=== PATIENT | female | born 1940 | race Caucasian/White ===

== ENCOUNTER 2019-12-31 20:41 | Emergency (ER) | payer MEDICARE, SELFPAY ==
[2019-12-31 21:03] VITALS: BP 191/88; PULSE 80; RESP 17; TEMP 36.9; O2SAT 98
--- NOTE | 2019-12-31 21:07 | DI.CT.S_ITS ---
PROCEDURE: CT CHEST WO CON INDICATIONS: fall TECHNIQUE: Noncontrast 5 mm thick sections acquired from the pulmonary apices to the posterior costophrenic angles. 1 mm lung window, 5 mm thick coronal and sagittal and 7 mm axial MIP reformats were then acquired. For radiation dose reduction, the following was used: automated exposure control, adjustment of mA and/or kV according to patient size. COMPARISON: None. FINDINGS: Image quality: Excellent. Lungs and pleura: Mild upper lobe peripheral reticular thickening and ground-glass opacity bilaterally. Mild peripheral reticular thickening at the lung bases. No pleural effusions or pneumothorax. Central and peripheral airways are patent and normal in caliber. Mediastinum: Left pacemaker. Heart size is prominent. No pericardial effusion. No mediastinal adenopathy by size criteria. Thoracic aorta and central pulmonary arteries are normal in size. Esophagus is normal in caliber. No hiatal hernia. Bones and chest wall: No suspicious bony lesions. T5 and L1 intraosseous hemangioma. Left T4 neural foramen nodule, (2). Please see separately dictated cervical spine CT. No vertebral body compression fractures. No axillary or supraclavicular adenopathy by size criteria. Right breast clip or calcification. Thyroid gland is unremarkable. Abdomen: Visualized upper abdominal solid organs and bowel loops appear normal in the absence of contrast. Question of small gallstone. IMPRESSION: 1. No acute fracture identified. Benign intraosseous hemangioma. 2. Mild peripheral reticular thickening in the lungs. Mild ground-glass opacity in the upper lobes. Favor scarring and atelectasis rather than infectious/inflammatory etiology. 3. Soft tissue nodule in the region of left T4 neural foramen. This may represent a small neoplasm. -this can be further characterized with MRI on a nonemergent basis. 4. Cardiomegaly. Dictated by: Everardo Camp M.D. on 12/31/2019 at 22:31 Approved by: Everardo Capm M.D. on 12/31/2019 at 22:46
--- NOTE | 2019-12-31 21:07 | DI.CT.S_ITS ---
PROCEDURE: CT CERVICAL SPINE WO CON INDICATIONS: fall TECHNIQUE: Noncontrast 3 mm thick sections acquired from the skull base to the T4 level. Sagittal and coronal reformats were then constructed. For radiation dose reduction, the following was used: automated exposure control, adjustment of mA and/or kV according to patient size. COMPARISON: [facility], CT, CT CHEST WO CON, 12/31/2019, 21:31. FINDINGS: Image quality: Excellent. Bones: No fractures or dislocations. C2-C3 and C6-C7 ankylosis. Posterior disc osteophyte complex at C3-C4. C6 interosseous hemangioma. Visualized superior ribs are intact. Bones appear osteopenic. Soft tissues: Prevertebral soft tissues are normal in thickness. No paravertebral hematomas. Left T4 neural foramen 1.6 cm nodule, (7/58). No apical pneumothoraces. Dense carotid bulb atherosclerotic calcifications. Left pacemaker. IMPRESSION: 1. No acute osseous abnormality. 2. Moderate degenerative change of the cervical spine. 3. Left T4 neural foramen nodule. This could represent a small neuroma or other neoplasm. -this could be further characterized with MRI with IV contrast on a nonemergent basis. Dictated by: Everardo Camp M.D. on 12/31/2019 at 21:52 Approved by: Everardo Camp M.D. on 12/31/2019 at 21:59
--- NOTE | 2019-12-31 21:07 | DI.CT.S_ITS ---
PROCEDURE: CT HEAD/BRAIN WO CON INDICATIONS: fall TECHNIQUE: Noncontrast 4.5 mm thick angled axial sections acquired from the foramen magnum to the vertex, with coronal and sagittal reformats. For radiation dose reduction, the following was used: automated exposure control, adjustment of mA and/or kV according to patient size. COMPARISON: [facility], CT, CT CERVICAL SPINE WO CON, 12/31/2019, 21:22. FINDINGS: Image quality: Excellent. CSF spaces: Basal cisterns are patent. No extra-axial fluid collections. Ventricles are normal in size and shape. Brain: No midline shift. Basal ganglia calcifications. No intracranial masses or hemorrhage. No area of hypodensity in a large vascular distribution to suggest acute infarction. Periventricular hypodensity consistent with chronic microvascular ischemic change. Age-related parenchymal loss. Skull and face: Calvarium and visualized facial bones are intact, without suspicious lesions. Sinuses: Visualized sinuses and mastoids are clear. IMPRESSION: No acute intracranial abnormality. Dictated by: Everardo Camp M.D. on 12/31/2019 at 21:50 Approved by: Everardo Camp M.D. on 12/31/2019 at 21:52
[2019-12-31 21:49] VITALS: PULSE 80; RESP 17; O2SAT 98
[2019-12-31 22:00] VITALS: PULSE 80; RESP 18; O2SAT 97
[2019-12-31] MEDS: TET,DIPH,PERTUSS(ACELL),VAC/PF 0.5 ML SYRINGE IM (22:06)
--- NOTE | 2019-12-31 22:27 | DI.RAD.S_ITS ---
PROCEDURE: XR HAND LT 2V INDICATIONS: Fall/injury TECHNIQUE: 2 views of the hand acquired. COMPARISON: None. FINDINGS: Bones: No fractures or dislocations. There is slight widening of the scapholunate interval. Visualized osseous structures appear osteopenic. Carpal bones are normally aligned. No suspicious bony lesions. Soft tissues: There are indistinct soft tissue calcifications along the radiocarpal joint. IMPRESSION: 1. No fracture or dislocation. 2. Widening of the scapholunate interval suggesting ligamentous injury. 3. Indistinct soft tissue calcifications along the radiocarpal joint are nonspecific and may reflect chondrocalcinosis or dystrophic calcifications among other etiologies. Dictated by: Jeremy Montano M.D. on 01/01/2020 at 8:18 Approved by: Jeremy Montano M.D. on 01/01/2020 at 8:26
[2019-12-31 22:30] VITALS: PULSE 80; RESP 20; O2SAT 97
--- NOTE | 2019-12-31 22:43 | ED.FALL ---
HPI - Fall General Chief Complaint: Trauma Stated Complaint: Fall Time Seen by Provider: 12/31/19 21:29 Source: patient and family Mode of arrival: Ambulatory History of Present Illness HPI Narrative: Patient here with granddaughter. They were camping. Patient was pivoting walking, did not see a large rock and tripped over and fell forward. A tent PEG hit her in the sternum. Left eyebrow hit the ground as well as the left tesfaye hit the rock. Tetanus given here. Patient is on blood thinner. Denies denies denies any headache altered mental status confusion neck pain, vision changes. No nausea or vomiting. Has small laceration to the left eyebrow, skin tear to the left tesfaye. And bruising to the left MCP joint Related Data Allergies Allergy/AdvReac Type Severity Reaction Status Date / Time Beta-Blockers Allergy Verified 12/31/19 21:09 (Beta-Adrenergic Bloc Review of Systems Review of Systems Narrative: GENERAL: Denies chills, fatigue, malaise, fever, sweats. HEENT: Denies sinus pain, ear pain, sore throat, difficulty swallowing, dizziness. RESPIRATORY: Denies dyspnea, cough, wheezing, hemoptysis, sputum. CARDIOVASCULAR: Denies chest pain, palpitations, orthopnea, edema, GASTROINTESTINAL: Denies nausea, vomiting, abdominal pain, diarrhea, constipation, melena. : Denies dysuria, frequency, incontinence, hematuria, urinary retention. MUSCULOSKELETAL: denies weakness, complains of joint pain, or bony pain SKIN: Denies rash, skin lesions, or other has abrasions/skin injury to leg and face NEUROLOGIC: Denies weakness, headache, numbness, change in speech, confusion, seizures, incoordination. PSYCHIATRIC: No concerning psychosocial issues. ROS Unobtainable: All systems reviewed & are unremarkable except as noted in HPI and below Patient History Social History Smoking Status: Never smoker Smoking Status: Never smoker alcohol intake frequency: holidays/special occasions only Substance Use Type: does not use Exam Narrative Exam Narrative: GENERAL: patient appears stated age. Well-nourished, well-developed patient, in no distress, not toxic HEAD: Normocephalic. Small superficial 1 cm linear laceration horizontal direction in the left eyebrow. Below the hair. Based visualized bloodless field. No muscle injury seen. No bone exposure. EYES: Pupils equal round and reactive. Extraocular motions intact. No scleral icterus. No injection or drainage. ENT: Nose without bleeding, purulent drainage. Throat without erythema, tonsillar hypertrophy or exudate. Airway patent. NECK: Trachea midline. Non tender cervical collar cleared after CT scan results. There is no no no midline tenderness or step-off. Full active range of motion without any neck pain. No altered mental status CARDIOVASCULAR: Regular rate and rhythm without murmurs, gallops, or rubs. Mild tenderness at the sternum. No crepitus or flail. Skin is intact no bruising RESPIRATORY: Clear to auscultation. Breath sounds equal bilaterally. No wheezes, rales, or rhonchi. GASTROINTESTINAL: Abdomen soft, non-tender, nondistended. EXTREMITIES: Examination bilateral shoulders elbows and wrists nontender. Bilateral pelvis hips and knees and ankles nontender. There is contusion/tenderness small amount of edema to the dorsal surface of the left 5th MCP joint. Able to flex and extend at this joint. No deformity. Light touch intact to hand and fingers and 5th digit. Skin is intact. Examination left lower extremity at the mid tesfaye there are 2 small skin tears. No bone or muscle or tendon injury seen. Bloodless field. BACK: Nontender without deformity or crepitance. No flank tenderness. NEURO: AOx3. Clear speech no facial droop light touch intact to bilateral face hands and legs. Strong equal reservation sales agent. SKIN: No rash or erythema of visible areas PSYCH: Not anxious, is cooperative Initial Vital Signs Initial Vital Signs: Vital Signs Temperature 98.5 F 12/31/19 21:03 Pulse Rate 80 12/31/19 21:03 Respiratory Rate 17 12/31/19 21:03 Blood Pressure 191/88 H 12/31/19 21:03 Pulse Oximetry 98 12/31/19 21:03 Procedures Laceration Repair Left eyebrow: Site: face Side (If applicable): left Size (cm): 1 Description: linear Depth: simple, single layer Amount of anesthesia used (mL): 0 Pre-repair: wound explored and irrigated extensively Skin layer closed with: other (Applied by nurse.) Course Course Course Narrative: Spoke with patient and granddaughter about CT scan findings need further MRI for workup for neoplasm outpatient basis Orders Ordered: ED Orders 12/31/19 21:07 CT cervical spine wo con Stat CT chest wo con Stat CT head/brain wo con Stat 12/31/19 22:27 XR hand LT 2V Stat Discontinued Medications Acetaminophen (Tylenol) 650 mg PO NOW ONE Stop: 12/31/19 22:29 Last Admin: 12/31/19 23:06 Dose: 650 mg Documented by: LETI Diphtheria/Tetanus/Acell Pertussis (Adacel) 0.5 ml IM .ONCE ONE Stop: 12/31/19 21:10 Last Admin: 12/31/19 22:06 Dose: 0.5 ml Documented by: YAHIR Vital Signs Vital signs: Vital Signs - 8 hr 12/31/19 21:03 12/31/19 21:49 12/31/19 22:00 Temperature 98.5 F Pulse Rate 80 80 80 Respiratory Rate 17 17 18 Blood Pressure 191/88 H Pulse Oximetry 98 98 97 12/31/19 22:30 12/31/19 23:00 12/31/19 23:17 Temperature Pulse Rate 80 80 77 Respiratory Rate 20 24 16 Blood Pressure 168/76 H Pulse Oximetry 97 98 MDM - Fall Differential Diagnosis Differential diagnosis: Likely other (Chest contusion/facial laceration/hand contusion/leg skin tear) Imaging Data CT scan - head: Radiologist's Impression: [place] [address] CT Scan Report Signed Patient: Yamile Pan [facility]#: [id number] : 9Acct:[id number] Age/Sex: 79 / FDate of Service: 12/31/19 Loc: ED Accession Number: [id number] Procedure: CT head/brain wo con Ordering Provider: Alexsander Bautista MD PROCEDURE: CT HEAD/BRAIN WO CON INDICATIONS: fall TECHNIQUE: Noncontrast 4.5 mm thick angled axial sections acquired from the foramen magnum to the vertex, with coronal and sagittal reformats. For radiation dose reduction, the following was used: automated exposure control, adjustment of mA and/or kV according to patient size. COMPARISON: [facility], CT, CT CERVICAL SPINE WO CON, 12/31/2019, 21:22. FINDINGS: Image quality: Excellent. CSF spaces: Basal cisterns are patent. No extra-axial fluid collections. Ventricles are normal in size and shape. Brain: No midline shift. Basal ganglia calcifications. No intracranial masses or hemorrhage. No area of hypodensity in a large vascular distribution to suggest acute infarction. Periventricular hypodensity consistent with chronic microvascular ischemic change. Age-related parenchymal loss. Skull and face: Calvarium and visualized facial bones are intact, without suspicious lesions. Sinuses: Visualized sinuses and mastoids are clear. IMPRESSION: No acute intracranial abnormality. Dictated by: Everardo Camp M.D. on 12/31/2019 at 21:50 Approved by: Everardo Camp M.D. on 12/31/2019 at 21:52 CT - cervical spine: Radiologist's Impression: [address] [address] [address] Scan Report Signed Patient: Yamile Pan [facility]#: [id number] : 9Acct:[id number] Age/Sex: 79 / FDate of Service: 12/31/19 Loc: ED Accession Number: [id number] Procedure: CT cervical spine wo con Ordering Provider: Alexsander Bautista MD PROCEDURE: CT CERVICAL SPINE WO CON INDICATIONS: fall TECHNIQUE: Noncontrast 3 mm thick sections acquired from the skull base to the T4 level. Sagittal and coronal reformats were then constructed. For radiation dose reduction, the following was used: automated exposure control, adjustment of mA and/or kV according to patient size. COMPARISON: [facility], CT, CT CHEST WO CON, 12/31/2019, 21:31. FINDINGS: Image quality: Excellent. Bones: No fractures or dislocations. C2-C3 and C6-C7 ankylosis. Posterior disc osteophyte complex at C3-C4. C6 interosseous hemangioma. Visualized superior ribs are intact. Bones appear osteopenic. Soft tissues: Prevertebral soft tissues are normal in thickness. No paravertebral hematomas. Left T4 neural foramen 1.6 cm nodule, (7/58). No apical pneumothoraces. Dense carotid bulb atherosclerotic calcifications. Left pacemaker. IMPRESSION: 1. No acute osseous abnormality. 2. Moderate degenerative change of the cervical spine. 3. Left T4 neural foramen nodule. This could represent a small neuroma or other neoplasm. -this could be further characterized with MRI with IV contrast on a nonemergent basis. Dictated by: Everardo Camp M.D. on 12/31/2019 at 21:52 Approved by: Everardo Camp M.D. on 12/31/2019 at 21:59 CT scan - chest: Radiologist's Impression: [address] [address] [address] Scan Report Signed Patient: Yamile Pan [facility]#: [id number] : 9Acct:[id number] Age/Sex: 79 / FDate of Service: 12/31/19 Loc: ED Accession Number: [id number] Procedure: CT chest wo con Ordering Provider: Alexsander Bautista MD PROCEDURE: CT CHEST WO CON INDICATIONS: fall TECHNIQUE: Noncontrast 5 mm thick sections acquired from the pulmonary apices to the posterior costophrenic angles. 1 mm lung window, 5 mm thick coronal and sagittal and 7 mm axial MIP reformats were then acquired. For radiation dose reduction, the following was used: automated exposure control, adjustment of mA and/or kV according to patient size. COMPARISON: None. FINDINGS: Image quality: Excellent. Lungs and pleura: Mild upper lobe peripheral reticular thickening and ground-glass opacity bilaterally. Mild peripheral reticular thickening at the lung bases. No pleural effusions or pneumothorax. Central and peripheral airways are patent and normal in caliber. Mediastinum: Left pacemaker. Heart size is prominent. No pericardial effusion. No mediastinal adenopathy by size criteria. Thoracic aorta and central pulmonary arteries are normal in size. Esophagus is normal in caliber. No hiatal hernia. Bones and chest wall: No suspicious bony lesions. T5 and L1 intraosseous hemangioma. Left T4 neural foramen nodule, (2/9). Please see separately dictated cervical spine CT. No vertebral body compression fractures. No axillary or supraclavicular adenopathy by size criteria. Right breast clip or calcification. Thyroid gland is unremarkable. Abdomen: Visualized upper abdominal solid organs and bowel loops appear normal in the absence of contrast. Question of small gallstone. IMPRESSION: 1. No acute fracture identified. Benign intraosseous hemangioma. 2. Mild peripheral reticular thickening in the lungs. Mild ground-glass opacity in the upper lobes. Favor scarring and atelectasis rather than infectious/inflammatory etiology. 3. Soft tissue nodule in the region of left T4 neural foramen. This may represent a small neoplasm. -this can be further characterized with MRI on a nonemergent basis. 4. Cardiomegaly. Dictated by: Everardo Camp M.D. on 12/31/2019 at 22:31 Approved by: Everardo Camp M.D. on 12/31/2019 at 22:46 X-ray left hand: My Impression: No acute process MDM Narrative Medical decision making narrative: Incidental findings on CT scan can be followed up with MRI for non emergent basis of neoplasm. I did speak with patient and family no blood work indicates this time. Bleeding controlled. Discharge Plan Departure Patient Disposition: Home Clinical Impression: Eyebrow laceration Qualifiers: Encounter type: initial encounter Laterality: left Qualified Code(s): S01.112A - Laceration without foreign body of left eyelid and periocular area, initial encounter Contusion of sternum Qualifiers: Encounter type: initial encounter Qualified Code(s): S20.219A - Contusion of unspecified front wall of thorax, initial encounter Noninfected skin tear of left leg Qualifiers: Encounter type: initial encounter Qualified Code(s): S81.812A - Laceration without foreign body, left lower leg, initial encounter Discharge Date/Time: 12/31/19 23:17 Instructions: DI for Laceration Repair-Skin Glue, DI for Sternum Contusion, DI for Abrasion Activity Restrictions/Additional Instructions: Keep eyebrow dry for 24 hours then may shower but no submerging underwater. Change dressing in the left leg twice a day with warm soap and water and then topical antibiotic. See family doctor this week for recheck and to schedule MRI of the spine as we discussed tonight. Return if worse or if any questions or concerns. Referrals: Deyvi Villarreal MD [Primary Care Provider] -
[2019-12-31 23:00] VITALS: PULSE 80; RESP 24
[2019-12-31] MEDS: ACETAMINOPHEN 325 MG TABLET 650 MG PO (23:06)
[2019-12-31 23:17] VITALS: BP 168/76; PULSE 77; RESP 16; O2SAT 98
== END 2019-12-31 23:17 | disposition home or self-care (01) ==
PROVIDERS: Emergency Provider Emergency Medicine; PCP Family Medicine
DX: S01.112A Laceration without foreign body of left eyelid and periocular area, initial encounter (principal); S20.219A Contusion of unspecified front wall of thorax, initial encounter; S81.812A Laceration without foreign body, left lower leg, initial encounter; W19.XXXA Unspecified fall, initial encounter; Z23 Encounter for immunization; Z79.01 Long term (current) use of anticoagulants; S09.90XA Unspecified injury of head, initial encounter
CPT/HCPCS: 70450; 71250; 72125; 73120; 90471; 99284; 90715